=== PATIENT | female | born 1960 | race Caucasian/White ===

== ENCOUNTER 2020-11-01 12:58 | Emergency (ER) | payer OTHER ==
[~2020-11-01 12:58] MED LIST: FLEXERIL10 MG PO; VOLTAREN **OUT75 MG PO
[2020-11-01] MEDS ORDERED: PERCOCET 5-3251 EACH PO (17:21)
== END 2020-11-01 17:38 | disposition home or self-care (01) ==
LOC: FER 12:58
DX: S42.402A Unspecified fracture of lower end of left humerus, initial encounter for closed fracture (principal); M25.532 Pain in left wrist; R22.32 Localized swelling, mass and lump, left upper limb; F17.210 Nicotine dependence, cigarettes, uncomplicated; W19.XXXA Unspecified fall, initial encounter; Y92.009 Unspecified place in unspecified non-institutional (private) residence as the place of occurrence of the external cause
CPT/HCPCS: 73080; 73090; 73110; 73200; 96372; J1885

== ENCOUNTER 2021-03-27 21:24 | Emergency (ER) | payer OTHER ==
[~2021-03-27 21:24] MED LIST changes: +PERCOCET 5-3251 EACH PO
[2021-03-27 22:49] LABS: BASOPHIL 0.6 % (0-2); EOSINOPHIL 0.6 % (0-5); HCT 43.4 % (37.0-47.0); HGB 14.2 g/dl (12.5-16.0); LYMPHOCYTE 39.1 % (15-48); MCH 30.5 pg (25.0-31.0); MCHC 32.7 g/dL (32.0-36.0); MCV 93.1 fL (78.0-100.0); MONOCYTE 11.1 % (0-12); MPV 9.6 fL (6.0-9.5); NEUTROPHIL 48.4 % (41-80); NRBC 0; PLT 277 K/uL (150-400); RBC 4.66 M/uL (4.20-5.40); RDW 14.7 % (11.5-14.0); WBC 5.4 K/uL (4.0-10.5)
[2021-03-27 23:08] LABS: ALBUMIN 3.7 g/dL (3.4-5.0); BILIRUBIN - TOTAL 0.4 mg/dL (0.2-1.0); BUN/CREAT RATIO (CALC) 12.2 RATIO; CREATININE 0.82 mg/dL (0.51-0.95); GLOBULIN (CALCULATION) 3.1 g/dL; POTASSIUM 4.3 mmol/L (3.5-5.1); TOTAL PROTEIN 6.8 g/dL (6.4-8.2)
[2021-03-28] MEDS ORDERED: ASPIRIN EC81 MG PO (01:07)
[2021-03-28] MEDS ORDERED: LISINOPRIL10 MG PO (01:07)
[2021-03-28 01:19] LABS: BILIRUBIN NEGATIVE (NEGATIVE); BLOOD 1+ Ery/uL (NEGATIVE); GLUCOSE (U) NORMAL (NORMAL); LEUKOCYTES NEGATIVE Leu/uL (NEGATIVE); NITRITE NEGATIVE (NEGATIVE); PROTEIN NEGATIVE (NEGATIVE); UROBILINOGEN 0.2 mg/dL (0.2-1.0); pH 6.5 (5.0-9.0)
[2021-03-28 01:27] LABS: CLARITY CLEAR (CLEAR); COLOR BROWN (YELLOW)
[2021-03-28 01:29] LABS: SQUAMOUS EPITHELIAL CELLS RARE
== END 2021-03-28 01:20 | disposition left against medical advice (07) ==
LOC: FER 21:24
PROVIDERS: Emergency Medicine Emergency Medical Services; Internal Medicine
DX: G45.9 Transient cerebral ischemic attack, unspecified (principal); I10 Essential (primary) hypertension; R29.700 NIHSS score 0; F17.210 Nicotine dependence, cigarettes, uncomplicated
CPT/HCPCS: 36415; 70450; 71045; 80053; 81001; 84443; 84484; 85025; 93005; G0480